=== PATIENT | female | born 1980 | race Caucasian/White ===

== ENCOUNTER 2016-11-14 18:04 | Observation (INO) | payer OTHER ==
[2016-11-14 19:11] LABS: COLOR PALE YELLOW; LEUKOCYTE ESTERASE,URINE NEGATIVE (NEGATIVE); NITRITE,URINE NEGATIVE (NEGATIVE)
== END 2016-11-14 19:30 | disposition home or self-care (01) ==
LOC: FLD 18:04
PROVIDERS: ADMIT Obstetrics & Gynecology; ATTEND Obstetrics & Gynecology
DX: O99.89 Other specified diseases and conditions complicating pregnancy, childbirth and the puerperium (principal); R10.2 Pelvic and perineal pain; Z3A.24 24 weeks gestation of pregnancy
CPT/HCPCS: G0378

== ENCOUNTER 2017-02-16 17:30 | Observation (INO) | payer OTHER ==
--- NOTE | 2017-02-16 19:46 | GHP ---
[f rep st] HISTORY AND PHYSICAL DATE OF ADMISSION: 02/16/2017 ADMITTING DIAGNOSES: 1. Intrauterine at 37 and 4/7 weeks. 2. Premature rupture of membranes (PROM). HISTORY OF PRESENT ILLNESS: The patient is a 36-year-old 1, para 0, at 37 and 4/7 weeks with estimated due date 03/05/17 by last menstrual period, , and confirmed by first-trimester ultrasound at 8 weeks. The patient presents to Labor and Delivery with complaints of leakage of fluid, gush x2 at 1600 this evening. Clear fluid noted. She continues to leak clear fluid. She states she is having Rakan Mahoney contractions, nothing painful, nothing regular. Good movement noted. GBS culture is negative. The patient does have good care at [facility] and presented in her first trimester at 8 weeks. The is complicated by Rh negative. The patient did receive RhoGAM at 28 weeks. The patient has a history of HSV-2. She is on prophylactic Valtrex, starting at 36 weeks. There was an abnormal Pap smear during this , ASCUS and high-risk HPV. The patient did have a colposcopy during the with no biopsies. The patient developed anemia of , and tolerating iron. The patient did get genetic testing in this , and all was negative. The patient did receive flu vaccine, as well as Tdap. PAST OBSTETRICAL HISTORY: The patient is primigravida. GYNECOLOGICAL HISTORY: Age of menarche was 16. Cycles are every 26 days for 4- 5 days. Last menstrual period 05/27/16. Date of positive test . The patient had an abnormal Pap during this , showing ASCUS, high- risk HPV. The patient also has a history of HSV-2 but denies exposure to any other sexually transmitted diseases. PAST MEDICAL HISTORY: Unremarkable. PAST SURGICAL HISTORY: Fractured left forearm twice. FAMILY HISTORY: Noncontributory. MEDICATIONS: vitamins-VitaPearl. Valtrex. ALLERGIES: None. SOCIAL HISTORY: She is single. She lives with her partner. 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 She denies any alcohol, tobacco , or illicit drug use. LABS: A negative, Rh negative. Did receive RhoGAM. RPR nonreactive. Rubella immune. Hepatitis B surface antigen negative. HIV negative. Trio screen negative. TSH and free T4 are 1.1 and 1.12. Urine culture negative. Pap test abnormal, ASCUS, high-risk HPV. Gonorrhea and chlamydia cultures negative. AFP negative. Verifi negative. H and H 12.6, 36.8. One-hour Glucola 110. GBS negative. PHYSICAL EXAMINATION: VITAL SIGNS: On admission, stable. The patient is afebrile. GENERAL: Well-nourished, well-developed female, alert and oriented x3. No apparent distress. CARDIOVASCULAR: Regular rate and rhythm. LUNGS: Clear to auscultation. ABDOMEN: Gravid, soft, nontender. EXTREMITIES: Normal to inspection without edema, calf tenderness. PELVIC: The patient is 3 cm dilated, 80% effaced, 0 station. Cephalic. Grossly ruptured. Clear fluid, positive Nitrazine. heart tones category I tracing, reactive, baseline of 130 beats per minute. Positive accelerations, no decelerations, moderate long-term variability. On tocodynamometer, she is darrell every 8-12 minutes. ASSESSMENT: The patient is a 36-year-old 1, para 0, at 37 and 4/7 weeks who presents with premature rupture of membranes. PLAN: 1. 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 She would like to labor at home. The patient would like to eat something and then return to the hospital later this evening if there are no signs of labor. 2. The patient is GBS negative, so no prophylactic antibiotics are necessary. 4. Discussed with the patient the risks of not staying in the hospital. She is to return to the hospital if she notes decreased movement, any vaginal bleeding, and return in 6 hours if there are no regular, painful contractions. The patient does understand all the risks and understands the precautions and when to come back to the hospital. 5. The patient is being discharged home in stable condition. /[id number]/MODL MTDD
== END 2017-02-16 20:13 | disposition home or self-care (01) ==
LOC: FLD 17:30
PROVIDERS: ADMIT Obstetrics & Gynecology; ATTEND Obstetrics & Gynecology
DX: O42.92 Full-term premature rupture of membranes, unspecified as to length of time between rupture and onset of labor (principal); Z3A.37 37 weeks gestation of pregnancy
CPT/HCPCS: G0378

== ENCOUNTER 2017-02-16 22:45 | Inpatient (IN) | payer OTHER ==
[2017-02-16] MEDS ORDERED: OLIVE OIL 118 ML BTL MISC PRN (22:58)
[2017-02-16] MEDS ORDERED: TERBUTALINE SULFATE 1 MG/ML VIAL IV PRN (22:58)
[2017-02-16] MEDS ORDERED: OXYTOCIN/RINGERS LACTATE 1,000 ML IV PRN (22:58)
[2017-02-16] MEDS ORDERED: IBUPROFEN 600 MG TAB PO PRN (22:58)
[2017-02-16] MEDS ORDERED: LR 1,000 ML IV PRN (22:58)
[2017-02-16] MEDS ORDERED: LIDOCAINE 1% 30 ML SDV SC PRN (22:58)
[2017-02-16] MEDS ORDERED: EPSOM SALT 454 GM TP PRN (22:58)
[2017-02-16] MEDS ORDERED: LIDOCAINE 1% 30 ML SDV ONE (23:49)
[2017-02-16] MEDS ORDERED: AMMONIA AROMATIC 1 EACH AMP IH ONE (23:50)
[2017-02-16] MEDS ORDERED: TERBUTALINE SULFATE 1 MG/ML VIAL ONE (23:50)
[2017-02-16] MEDS ORDERED: OLIVE OIL 118 ML BTL ONE (23:50)
[2017-02-16] MEDS ORDERED: MISOPROSTOL 200 MCG TAB ONE (23:51)
[2017-02-16] MEDS ORDERED: OXYTOCIN 10 UNIT/ML VIAL ONE (23:51)
--- NOTE | 2017-02-17 00:36 | GHP ---
[f rep st] HISTORY AND PHYSICAL DATE OF ADMISSION: 02/16/2017 ADMITTING DIAGNOSES: 1. Intrauterine at 37 and 4/7 weeks. 2. Premature rupture of membranes. 3. Now active labor. HISTORY OF PRESENT ILLNESS: The patient 36-year-old, 1, para 0, at 37 and 4/7 weeks, estimated due date 03/05/2017 by last menstrual period 05/27/2016 , confirmed by first trimester ultrasound at 8 weeks. The patient returns to Labor and Delivery with complaints of worsening contractions that are every 2-3 minutes apart for the last 2-3 hours, very painful. She continues to leak clear fluid. Good movement noted. Patient presents to Labor and Delivery with her mock up maker. The patient has good care at [facility], and presented in her first trimester at 8 weeks. is complicated by the patient being Rh negative. She did receive RhoGAM at 28 weeks. The patient has a history of HSV-2. She is on prophylactic Valtrex starting at 36 weeks. She had an abnormal Pap smear during this , showing ASCUS, high-risk HPV, and the patient did have a colposcopy during the . Patient developed anemia of , and is tolerating iron. The patient did get genetic testing and all was negative. The patient received a flu vaccine, as well as TDaP. GBS culture is negative. PAST OBSTETRICAL HISTORY: The patient is primigravida. GYNECOLOGIC HISTORY: Age of menarche was 16. Cycles every 26 days for 4-5 days. Last menstrual period 05/27/2016. Date of positive test 2015. The patient did have an abnormal Pap smear during this showing ASCUS, high-risk HPV. The patient also has a history of HSV-2, but denies exposure to any other sexually transmitted diseases. PAST MEDICAL HISTORY: Unremarkable. PAST SURGICAL HISTORY: Fractured left forearm twice. FAMILY HISTORY: Noncontributory. MEDICATIONS: vitamins. VitaPearl. Valtrex. ALLERGIES: None. SOCIAL HISTORY: She is single. Lives with a partner. 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 She denies any alcohol, tobacco or illicit drug use. LABS: A negative, Rh negative. Did receive RhoGAM. RPR nonreactive. Rubella immune. Hepatitis B surface antigen negative. HIV negative. Trio screen negative. TSH and free T4 1.1 and 1.12. Urine culture negative. Pap test abnormal showing ASCUS, high-risk HPV. Gonorrhea and chlamydia cultures negative. AFP negative. Verifi negative. Hemoglobin and hematocrit 12.6/ 36.8. One-hour Glucola 110. GBS is negative. PHYSICAL EXAMINATION: VITAL SIGNS: On admission, were stable. Patient is afebrile. GENERAL: Well-nourished, well-developed female. Alert and oriented x3. Mild distress secondary to painful contractions. ABDOMEN: Gravid, soft, nontender. PELVIC: The patient is 8 cm dilated, 100% effaced, +1 station. heart tones, is a category 1 tracing, reactive, baseline of 130 beats per minute. Positive accelerations. No decelerations. Moderate long-term variability. Tocodynamometer: She is darrell every 2-4 minutes. ASSESSMENT: The patient is a 36-year-old, 1, para 0, at 37 and 4/7 weeks, who presents with premature rupture of membranes, who is now in active labor. PLAN: 1. Admit to Labor and Delivery for expectant management. 2. GBS culture is negative. No prophylactic antibiotics are needed. 3. Anticipate normal spontaneous vaginal delivery. /[id number]/MODL MTDD
[2017-02-17] MEDS ORDERED: SIMETHICONE 80 MG TAB CHEW PO PRN (01:43)
[2017-02-17] MEDS ORDERED: HYDROCORTISONE 0.5% CREAM TP PRN (01:43)
[2017-02-17] MEDS ORDERED: HYDROCODONE/APAP 5/325 TAB PO PRN (01:43)
--- NOTE | 2017-02-17 01:43 | OBPROC ---
- Labor and Delivery Onset of Contractions Date: 02/16/17 Onset of Contractions Time: 20:00 Onset of Contractions Type: Spontaneous Rupture of Membranes Date: 02/16/17 Rupture of Membranes Time: 16:00 Rupture of Membranes Type: Premature Amniotic Fluid Color: Clear Dilation Complete Time: 00:00 Delivery Type: Spontaneous Placenta Delivery Date: 02/17/17 Placenta Delivery Time: 01:20 Episiotomy/Laceration: 2nd Degree Repair: 3-0, Vicryl Complications: Nuchal Cord (x1; slipped on perineum) - Medications Labor Augmentation/Induction Meds Used: None Anesthesia: Local (Specify) (1% plain lidocaine) - Info A Delivery Date: 02/17/17 Delivery Time: 01:15 Sex of Infant: Female Score (1 Min): 8 Score (5 Min): 9
[2017-02-17] MEDS: DOCUSATE SODIUM 100 MG CAP PO PRN (08:22)
[2017-02-17] MEDS: IBUPROFEN 600 MG TAB PO PRN ×2 (08:22→21:06)
[2017-02-17 09:16] VITALS: O2SAT 95
--- NOTE | 2017-02-17 10:07 | SOAPPROG ---
SOAP Progress Note Assessment/Plan: Assessment: 36y/o day 0 s/p 02/17/17 @0115 Rh-neg Plan: Rec'd Rhogam Routine PP care Rev PP precautions Anticipate d/c to home tmrw 02/18/17 02/17/17 10:04 Subjective: Pt resting comfortably in bed with resting on abdomen. Reports pain well -controlled. going well. Ambulating, voiding without difficulty. Passing flatus, denies BM. Tolerating regular diet. Objective: Vital Signs Temp Pulse Resp BP Pulse Ox 36.4 C 68 16 107/69 95 02/17/17 08:00 02/17/17 08:00 02/17/17 08:00 02/17/17 08:00 02/17/17 08:00 02/16/17 02/17/17 02/18/17 05:59 05:59 05:59 Output Total 250 Balance -250 Physical Exam - Physical Exam General Appearance: alert, no apparent distress Respiratory: lungs clear, normal breath sounds Cardiac/Chest: regular rate, rhythm Abdomen: non-tender, soft Pelvic Exam: vaginal bleeding (lochia medium), other (fundus firm @U) Skin: normal color, warm/dry Extremities: normal range of motion, pedal edema (No BLE edema noted) Neuro/Psych: alert, normal mood/affect, oriented x 3 ICD10 Worksheet Patient Problems: Problems Problem Status Onset (normal spontaneous vaginal delivery) Acute - ICD10 Problem Qualifiers (1) (normal spontaneous vaginal delivery)
[2017-02-18] MEDS: DOCUSATE SODIUM 100 MG CAP PO PRN (08:37)
[2017-02-18] MEDS: IBUPROFEN 600 MG TAB PO PRN ×2 (08:37→20:10)
--- NOTE | 2017-02-18 18:37 | SOAPPROG ---
SOAP Progress Note Assessment/Plan: Assessment: ppd# 1 s/p breast feeding Plan: routine post care 02/18/17 18:35 Subjective: patient is doing well. pain is well controlled. normal lochia. breast feeding is going well. denies headache and changes in vision. no issues. Objective: Vital Signs Temp Pulse Resp BP Pulse Ox 36.6 C 69 16 116/73 95 02/18/17 08:00 02/18/17 08:00 02/18/17 08:00 02/18/17 08:00 02/17/17 20:00 02/17/17 02/18/17 02/19/17 05:59 05:59 05:59 Output Total 250 Balance -250 Physical Exam - Physical Exam General Appearance: WD/WN, alert, no apparent distress Respiratory: chest non-tender, lungs clear, normal breath sounds Cardiac/Chest: normal peripheral pulses, regular rate, rhythm Abdomen: normal bowel sounds, non-tender, soft, other (fundus firm and non tender) Skin: normal color, warm/dry Extremities: normal range of motion, non-tender, normal inspection, normal capillary refill Neuro/Psych: no motor/sensory deficits, alert, normal mood/affect, oriented x 3 ICD10 Worksheet Patient Problems: Problems Problem Status Onset (normal spontaneous vaginal delivery) Acute
[2017-02-18 21:16] VITALS: TEMP 97.6
[2017-02-19] MEDS: IBUPROFEN 600 MG TAB PO PRN (07:18)
[2017-02-19] MEDS: DOCUSATE SODIUM 100 MG CAP PO PRN (07:18)
--- NOTE | 2017-02-19 10:13 | SOAPPROG ---
SOAP Progress Note Assessment/Plan: Assessment: PPD 2 s/p Plan: D/C home 02/19/17 10:10 Subjective: Pt doing well. Bld is much powder worker tnt. urinating fine. Feels latch is going well. Ready for D/C. discussed exercise and going slowly due to sym pubis pain in . Objective: Vital Signs Temp Pulse Resp BP Pulse Ox 36.4 C 63 18 121/80 H 95 02/18/17 20:00 02/18/17 20:00 02/18/17 20:00 02/18/17 20:00 02/17/17 20:00 Physical Exam - Physical Exam General Appearance: WD/WN Abdomen: non-tender, soft, other (FF at umb -1) Pelvic Exam: vaginal bleeding (normal lochia) Extremities: non-tender, pedal edema (mild) Neuro/Psych: normal mood/affect ICD10 Worksheet Patient Problems: Problems Problem Status Onset (normal spontaneous vaginal delivery) Acute
[2017-02-19 11:22] VITALS: BP 108/69; PULSE 65; RESP 12
== END 2017-02-19 11:05 | disposition home or self-care (01) | DRG 775 ==
LOC: FLD 22:45 → FOB 02-17 03:25
PROVIDERS: ADMIT Obstetrics & Gynecology; ATTEND Obstetrics & Gynecology
DX: O70.1 Second degree perineal laceration during delivery (principal); O69.81X0 Labor and delivery complicated by cord around neck, without compression, not applicable or unspecified; O99.013 Anemia complicating pregnancy, third trimester; D64.9 Anemia, unspecified; Z3A.37 37 weeks gestation of pregnancy; Z37.0 Single live birth
CPT/HCPCS: J3105

== ENCOUNTER → 2017-03-26 | Outpatient (CLI) | payer OTHER | LOC: FIMAGING 14:30 | PROVIDERS: ATTEND Obstetrics & Gynecology | DX: N64.89 Other specified disorders of breast (principal) ==

== ENCOUNTER 2017-03-27 15:23 | Emergency (ER) | payer OTHER ==
[2017-03-27 16:04] VITALS: PULSE 60; RESP 14; O2SAT 95
--- NOTE | 2017-03-27 16:04 | EDPHY ---
H & P Stated Complaint: Right breast cyst with clogged milk duct Time Seen by Provider: 03/27/17 15:37 HPI/ROS: CHIEF COMPLAINT: right breast pain HISTORY OF PRESENT ILLNESS: 36-year-old female presents emergency department complaining of a worsening right breast lump with pain for the past 10 days. Patient saw [facility] 8 days ago and she had a was thought to be a clogged milk duct. Patient was sent home with instructions to massage, warm compresses frequent feeding and pumping. Patient reports she did this for 8 days and did not improve, infected became worse and larger. Patient reports her pain has changed from a tenderness to a sharper and burning sensation. Patient had an ultrasound yesterday which showed a fluid collection which is likely a galactocele cyst. Patient denies fevers or chills, no redness to her breast, no nausea or vomiting. REVIEW OF SYSTEMS: A comprehensive 10 point review of systems is otherwise negative aside from elements mentioned in the history of present illness. Source: Patient Exam Limitations: No limitations - Personal History LMP (Females 10-55): Unknown Current Tetanus/Diphtheria Vaccine: Yes Current Tetanus Diphtheria and Acellular Pertussis (TDAP): Yes - Medical/Surgical History Hx Asthma: No Hx Chronic Respiratory Disease: No Hx Diabetes: No Hx Cardiac Disease: No Hx Renal Disease: No Hx Cirrhosis: No Hx Alcoholism: No Hx HIV/AIDS: No Hx Splenectomy or Spleen Trauma: No Other PMH: FX OF LT WRIST, - Social History Smoking Status: Never smoked - Physical Exam Exam: GEN: Awake, alert, oriented, no acute distress RESP: nl resp effort MSK: Normal appearing SKIN: Right breast with firm, tender to palpation mass to upper left quadrant of right breast, no erythema, no drainage Constitutional: Initial Vital Signs Temperature (C) 36.6 C 03/27/17 15:31 Heart Rate 76 03/27/17 15:31 Respiratory Rate 14 03/27/17 15:31 Blood Pressure 110/81 H 03/27/17 15:31 O2 Sat (%) 95 03/27/17 15:31 O2 Delivery Mode Room Air Allergies/Adverse Reactions: No Known Allergies Allergy (Unverified 11/14/16 18:19) Home Medications: Medication Instructions Recorded Hydrocodone/APAP 5/325 [Burbank 0.5 tab PO Q4H PRN #7 tab 03/27/17 5/325] Medical Decision Making ED Course/Re-evaluation: 36-year-old female presents to the emergency department sent by Dr. Church to have her galactocele cyst drained. I called Radiology. They report there is an on-call interventional radiologist who is available for emergencies. Patient does not have evidence of an abscess or infection and she has had this cyst for over 10 days. I spoke with patient and Dr. Church. I gave the patient the radiology scheduling phone number to call Wednesday to schedule this. She was given a prescription for [place]ank to take 1/2 every 4 hours as needed for severe pain. I recommended continued warm compresses, ibuprofen and frequent feedings. The patient is given return precautions for any signs of infection or abscess with redness, fevers, worsening symptoms. Departure - Departure Disposition: Home, Routine, Self-Care Clinical Impression: Galactocele associated with childbirth Condition: Good Instructions: Cyst (ED) Additional Instructions: Continue with your warm compresses, massage and frequent feeding and pumping. Take 1/2 [place]ank every 4 hours as needed for severe pain. This will cause constipation. Take a stool softener every time you take a pain pill and drink plenty of water. Call [phone] Wednesday to schedule a Ultrasound guided drainage of your cyst. Return to the emergency department for any redness, fevers, new symptoms or concerns. Referrals: Trinidad Church MD [Medical Doctor] - As per Instructions Prescriptions: Hydrocodone/APAP 5/325 [Burbank 5/325] 0.5 tab PO Q4H PRN #7 tab PRN Reason: Pain, Moderate
[2017-03-27 16:30] VITALS: BP 110/60; TEMP 98.6
== END 2017-03-27 16:39 | disposition home or self-care (01) ==
DX: N64.89 Other specified disorders of breast (principal)